=== PATIENT | female | born 1940 | race African-American/Black ===

== ENCOUNTER 2018-03-27 05:07 | Emergency (ER) | payer OTHER, BC ==
[2018-03-27 05:22] VITALS: TEMP 97.6; BMI 26.6
[2018-03-27] MEDS ORDERED: ALBUTEROL SO4 0.083% IH SOL 2.5 MG/3 ML VIAL.NEB. NEB ONE ×2 (05:48→06:18)
[2018-03-27] MEDS ORDERED: LORATADINE 10 MG TABLET PO ONE (06:13)
[2018-03-27] MEDS ORDERED: LORATADINE 10 MG TABLET ONE (06:29)
--- NOTE | 2018-03-27 06:57 | PDOC ---
History of Present Illness - General Chief Complaint: Cold Symptoms Stated Complaint: STOMACH CRAMP,COUGHING Time Seen by Provider: 03/27/18 05:18 History Source: Patient Exam Limitations: No Limitations - History of Present Illness Initial Comments: 77 y/o F hx of HTN, bronchitis, seasonal allergies presents with having dry cough with abdominal cramping, slight cramping in B/L hands and B/L legs from today. Patient mentions having chronic cough for some time, for which she uses Albuterol inhaler and nebulizer. She has not been formally diagnosed with anything. Since last month, the cough grew a bit worse; she saw someone a month ago who prescribed her allergy meds and then saw her PCP last week and was given Montelukast, but has not noticed much difference with it. States the cramping started today. Also mentions recently being started on new BP medication, Olmesartan/Hctz 40/12.5 mg one month ago; denies taking any other HTN meds. Also mentions having occasional wheezing at home and nasal congestion. Denies smoking, fever, chills, sob, cp, n/v/d, urinary complaints. 03/27/18 06:48 Past History - Past Medical History Allergies/Adverse Reactions: Allergies Allergy/AdvReac Type Severity Reaction Status Date / Time No Known Drug Allergies Allergy Verified 03/27/18 05:17 Home Medications: Ambulatory Orders Valsartan [Diovan] 40 mg PO DAILY #30 tablet 05/10/14 Famotidine [Pepcid] 20 mg PO HS 01/22/16 Anemia: No Asthma: No Cancer: No Cardiac Disorders: No CVA: No COPD: No CHF: No Dementia: No Diabetes: No GI Disorders: No Disorders: No HTN: Yes Hypercholesterolemia: No Liver Disease: No Seizures: No Thyroid Disease: No - Surgical History Abdominal Surgery: Yes (hernia) Appendectomy: No Cardiac Surgery: No Cholecystectomy: No Lung Surgery: No Neurologic Surgery: No Orthopedic Surgery: No - Immunization History Immunization Up to Date: Yes - Suicide/Smoking/Psychosocial Hx Smoking Status: No Smoking History: Never smoked Have you smoked in the past 12 months: No Number of Cigarettes Smoked Daily: 0 Cigars Per Day: 0 Information on smoking cessation initiated: No Hx Alcohol Use: No Drug/Substance Use Hx: No Review of Systems - Review of Systems Comments:: See HPI 03/27/18 06:57 *Physical Exam - Vital Signs Last Vital Signs Temp Pulse Resp BP Pulse Ox 97.6 F 96 H 20 155/69 98 03/27/18 05:18 03/27/18 05:18 03/27/18 05:18 03/27/18 05:18 03/27/18 05:18 - Physical Exam General Appearance: No: Apparent Distress HEENT: positive: Nasal Congestion. negative: Muffled/Hoarse voice, Pharyngeal Erythema, Tonsillar Erythema, Rhinorrhea, Sinus Tenderness Neck: positive: Supple Respiratory/Chest: positive: Lungs Clear, Normal Breath Sounds. negative: Respiratory Distress, Accessory Muscle Use, Labored Respiration Cardiovascular: positive: Regular Rhythm, Regular Rate, S1, S2 Gastrointestinal/Abdominal: positive: Normal Bowel Sounds. negative: Tender, Distended, Guarding, Rebound, Tenderness Musculoskeletal: negative: CVA Tenderness Extremity: positive: Normal Inspection. negative: Pedal Edema, Swelling, Calf Tenderness Neurologic: positive: Fully Oriented, Alert, Normal Mood/Affect Heart Score/ECG Review #1 EKG shows NSR at 87 bpm, no ectopy, small TWI lead III 03/27/18 06:58 ED Treatment Course - LABORATORY CBC & Chemistry Diagram: 03/27/18 06:51 03/27/18 06:51 - RADIOLOGY Radiology Studies Ordered: Category Date Time Status CHEST PA & LAT [RAD] Stat Radiology 03/27/18 05:51 Taken - Medications Given in the ED: ED Medications Discontinued Medications Generic Name Dose Route Start Last Admin Trade Name Freq PRN Reason Stop Dose Admin Albuterol Sulfate 1 amp 03/27/18 05:48 03/27/18 06:10 Ventolin 0.083% Nebulizer Soln - NEB 03/27/18 05:49 1 amp ONCE ONE Administration Loratadine 10 mg 03/27/18 06:13 03/27/18 06:28 Claritin - PO 03/27/18 06:14 10 mg ONCE ONE Administration Medical Decision Making - Medical Decision Making 77 y/o F hx of HTN presents with chronic cough along with cramping of abdomen, hands and legs. Mentions the cramping in her abdomen improved after drinking orange juice. Consider electrolyte abnormalities (such as hypokalemia, hypomagnesemia, hypocalcemia). Also consider ACS though less suspicious given no CP and nonischemic EKG. Consider CHF though does not appear fluid overloaded. Consider PNA though no fever and lungs clear. Plan: CBC, CMP, trop, BNP, Mg, VBG, CXR 03/27/18 06:[address] Sheffield and no acute findings noted Pending lab results Will sign out to AM ASHLEY 03/27/18 07:02 *DC/Admit/Observation/Transfer Diagnosis at time of Disposition: Abdominal cramping - Discharge Dispostion Disposition: HOME Condition at time of disposition: Improved - Referrals Referrals: Bonifacio Sen MD [Primary Care Provider] - - Patient Instructions Additional Instructions: The cause of your abdominal pain is unclear as your labs were normal Return for worsening of symptoms, otherwise follow up with your PMD - Post Discharge Activity
[2018-03-27 06:58] LABS: VENOUS PH 7.36 (7.32-7.42); VENOUS PO2 41.5 mmHg (28-48)
[2018-03-27 07:12] LABS: BASO % 0.6 % (0-2.0); EOS % 12.4 % (0-4.5); HEMATOCRIT 34.1 % (32.4-45.2); HEMOGLOBIN 11.5 GM/dL (10.7-15.3); MCHC 33.6 g/dl (32.0-36.0); MEAN CELL VOLUME 86.3 fl (80-96); MEAN PLT VOLUME 8.2 fl (7.5-11.1); MONO % 10.1 % (3.8-10.2); NEUT % 49.9 % (42.8-82.8); PLATELET COUNT 201 K/MM3 (134-434); RBC 3.95 M/mm3 (3.60-5.2); RDW 13.9 % (11.6-15.6); WHITE BLOOD COUNT 7.2 K/mm3 (4.0-10.0)
--- NOTE | 2018-03-27 07:14 | PDOC ---
*Physical Exam - Vital Signs Last Vital Signs Temp Pulse Resp BP Pulse Ox 97.6 F 96 H 20 155/69 98 03/27/18 05:18 03/27/18 05:18 03/27/18 05:18 03/27/18 05:18 03/27/18 05:18 - Physical Exam General Appearance: Yes: Appropriately Dressed. No: Apparent Distress HEENT: positive: Normal Voice Neck: positive: Supple Respiratory/Chest: positive: Lungs Clear, Normal Breath Sounds. negative: Respiratory Distress Cardiovascular: positive: Regular Rate, S1, S2 Gastrointestinal/Abdominal: positive: Normal Bowel Sounds, Soft. negative: Tender, Pulsatile Mass, Distended, Guarding Musculoskeletal: negative: CVA Tenderness Integumentary: positive: Dry, Warm Neurologic: positive: Fully Oriented, Alert, Normal Mood/Affect ED Treatment Course - LABORATORY CBC & Chemistry Diagram: 03/27/18 06:51 03/27/18 06:51 - Medications Given in the ED: ED Medications Discontinued Medications Generic Name Dose Route Start Last Admin Trade Name Freq PRN Reason Stop Dose Admin Albuterol Sulfate 1 amp 03/27/18 05:48 03/27/18 06:10 Ventolin 0.083% Nebulizer Soln - NEB 03/27/18 05:49 1 amp ONCE ONE Administration Loratadine 10 mg 03/27/18 06:13 03/27/18 06:28 Claritin - PO 03/27/18 06:14 10 mg ONCE ONE Administration Medical Decision Making - Medical Decision Making 03/27/18 07:12 Signed out to me at 7am 77 yo F, h/o HTN, chronic cough, p/w upper abd pain yesterday, that resolved after she drank some orange juice this a.m. Exam unremarkable per prior team. EKG and chest x-ray unremarkable. Pending labs. Per prior team can be discharged if labs are normal. On reassessment now, patient well-appearing and stable with benign abdomen and clear chest/lungs. Denies any chest pain or shortness of breath at this time. 03/27/18 07:50 Labs unremarkable. Pt stable for discharge *DC/Admit/Observation/Transfer Diagnosis at time of Disposition: Abdominal cramping - Discharge Dispostion Disposition: HOME Condition at time of disposition: Improved - Referrals Referrals: Bonifacio Sen MD [Primary Care Provider] - - Patient Instructions Additional Instructions: The cause of your abdominal pain is unclear as your labs were normal Return for worsening of symptoms, otherwise follow up with your PMD - Post Discharge Activity
[2018-03-27 07:43] VITALS: BP 145/76; PULSE 89
[2018-03-27 07:49] LABS: ALBUMIN 3.7 g/dl (3.4-5.0); ALK PHOS 89 U/L (45-117); ANION GAP 8 MMOL/L (8-16); BILIRUBIN,TOTAL 0.4 mg/dL (0.2-1); BLOOD UREA NITROGEN 12 mg/dL (7-18); CALCIUM 8.7 mg/dL (8.5-10.1); CHLORIDE 99 mmol/L (98-107); CO2 26 mmol/L (21-32); CREATININE 0.8 mg/dL (0.55-1.3); GLUCOSE,RANDOM 98 mg/dL (74-106); SGOT/AST 16 U/L (15-37); SGPT/ALT 28 U/L (13-61); SODIUM 133 mmol/L (136-145)
--- NOTE | 2018-03-27 12:31 | EKG ---
Test Reason : Blood Pressure : / mmHG Vent. Rate : 087 BPM Atrial Rate : 087 BPM P-R Int : 156 ms QRS Dur : 082 ms QT Int : 376 ms P-R-T Axes : 053 034 038 degrees QTc Int : 452 ms NORMAL SINUS RHYTHM NORMAL ECG WHEN COMPARED WITH ECG OF 10-MAY-2014 05:58, QT HAS SHORTENED Confirmed by Wong Jaramillo ([id number]) on 03/27/2018 12:31:25 PM Referred By: Confirmed By:Wong Jaramillo
== END 2018-03-27 07:54 | disposition home or self-care (01) ==
LOC: JER 05:07
PROC: 3E0F7GC Introduction of Other Therapeutic Substance into Respiratory Tract, Via Natural or Artificial Opening (ICD-10-PCS; principal; 2018-03-27)
DX: R10.9 Unspecified abdominal pain (principal); R05 Cough; I10 Essential (primary) hypertension
CPT/HCPCS: 36415; 71046-TC-FY; 80053; 82803; 83735; 83880; 84484; 85025; 93005; 93010; 94640; 99282-25

== ENCOUNTER 2018-11-26 03:50 | Emergency (ER) | payer OTHER, BC ==
--- NOTE | 2018-11-26 04:12 | PDOC ---
History of Present Illness - General Stated Complaint: ABD CRAMPS Time Seen by Provider: 11/26/18 04:08 Past History - Past Medical History Allergies/Adverse Reactions: Allergies Allergy/AdvReac Type Severity Reaction Status Date / Time No Known Drug Allergies Allergy Verified 11/26/18 07:45 Home Medications: Ambulatory Orders Albuterol 0.083% Nebulizer Katerina [Ventolin 0.083% Nebulizer Soln -] 1 neb NEB Q6H PRN 11/26/18 Albuterol Sulfate Inhaler - [Ventolin Hfa Inhaler -] 1 - 2 inh PO Q4H PRN Cefuroxime Axetil [Cefuroxime] 500 mg PO BID 11/26/18 Anemia: No Asthma: No Cancer: No Cardiac Disorders: No CVA: No COPD: No CHF: No Dementia: No Diabetes: No GI Disorders: No Disorders: No HTN: Yes Hypercholesterolemia: No Liver Disease: No Seizures: No Thyroid Disease: No - Surgical History Abdominal Surgery: Yes (hernia) Appendectomy: No Cardiac Surgery: No Cholecystectomy: No Lung Surgery: No Neurologic Surgery: No Orthopedic Surgery: No - Immunization History Immunization Up to Date: Yes - Suicide/Smoking/Psychosocial Hx Smoking Status: No Smoking History: Never smoked Have you smoked in the past 12 months: No Number of Cigarettes Smoked Daily: 0 Cigars Per Day: 0 Hx Alcohol Use: No Drug/Substance Use Hx: No Substance Use Type: None ED Treatment Course - LABORATORY CBC & Chemistry Diagram: 11/26/18 05:11 11/26/18 07:01 Medical Decision Making - Medical Decision Making 78yo F with PMH of HTN, chronic bronchitis presenting with muscle cramps. Patient states she started a new medicine (Cefuroxime 500mg BID x 7 days, bottle has seven tablets remaining) on Wednesday prescribed by her primary care provider for her chronic bronchitis. She started having bilateral leg cramps at around 10pm and at 2pm had both leg and abdominal cramps. Patient's daughter gave her cyclobenzaprine which the patient believes helped with her cramping. She is not currently cramping at this time. Patient states that she has taken antibiotics in the past that have caused her the same type of muscle cramps. She believes the 500mg dosage is too much for her. She believes she has not been keeping well-hydrated and also spent most of the day in a hot kitchen frying fish. No fevers, chills, chest pain, or shortness of breath. PCP: Dr. Sen Pulmonary: Dr. Puri ROS: Constitutional: no fever, no chills HEENT: no throat pain, no dysphagia Cardiovascular: no chest pain, no palpitations Respiratory: no cough, no shortness of breath Gastrointestinal: no abdominal pain, no nausea Genitourinary: no dysuria, no frequency Musculoskeletal: +muscle cramps, no back pain Skin: no rash, no itching Neurologic: no headache, no weakness PE: General: Awake, alert, and fully oriented, in no acute distress Head: No signs of trauma Eyes: EOMI, sclera anicteric ENT: Moist mucus membranes Neck: Normal ROM, supple Lungs: Lungs clear, Prolonged expiratory phase Cardio: Regular rhythm, S1 and S2 present Abdomen: Soft, nontender. No guarding, no rebound, no masses Extremities: Normal range of motion, Distal pulses present SKIN: Warm, Dry, normal turgor Neurologic: Cranial nerves II through XII grossly intact. Normal speech Plan DDX including but not limited to electrolyte abnormality, anemia, adverse drug reaction, dehydration Labs Banana bag 11/26/18 04:12 CBC WBC 7.6 K/mm3 (4.0-10.0) 11/26/18 05:11 RBC 3.97 M/mm3 (3.60-5.2) 11/26/18 05:11 Hgb 11.9 GM/dL (10.7-15.3) 11/26/18 05:11 Hct 34.3 % (32.4-45.2) 11/26/18 05:11 MCV 86.2 fl (80-96) 11/26/18 05:11 MCH 30.1 pg (25.7-33.7) 11/26/18 05:11 MCHC 34.9 g/dl (32.0-36.0) 11/26/18 05:11 RDW 14.0 % (11.6-15.6) 11/26/18 05:11 Plt Count 243 K/MM3 (134-434) D 11/26/18 05:11 MPV 8.3 fl (7.5-11.1) 11/26/18 05:11 Absolute Neuts (auto) 2.9 K/mm3 (1.5-8.0) 11/26/18 05:11 Neutrophils % 37.9 % (42.8-82.8) L D 11/26/18 05:11 Lymphocytes % 41.1 % (8-40) H D 11/26/18 05:11 Monocytes % 10.2 % (3.8-10.2) 11/26/18 05:11 Eosinophils % 9.1 % (0-4.5) H 11/26/18 05:11 Basophils % 1.7 % (0-2.0) 11/26/18 05:11 Nucleated RBC % 0 % (0-0) 11/26/18 05:11 No anemia or leukocytosis Chemistries hemolyzed Re-ordered and sent 11/26/18 05:08 Patient signed out to day team 11/26/18 07:07 *DC/Admit/Observation/Transfer Diagnosis at time of Disposition: Muscle cramping - Discharge Dispostion Disposition: HOME Condition at time of disposition: Improved - Referrals Referrals: Bonifacio Sen MD [Primary Care Provider] - - Patient Instructions Printed Discharge Instructions: Nocturnal Leg Cramps Additional Instructions: You came into the emergency department with muscle cramping. Your blood work did not show any acute abnormalities. We gave you IV fluids containing vitamins and minerals. Eat and hydrate throughout the day to prevent dehydration and low blood sugar levels. Follow-up with your primary care provider within 72 hours to discuss this ED visit and to further evaluate your symptoms. Call and make an appointment tomorrow morning. Your workup is not complete until you do so. Immediate medical attention is required if: have any chest pain, palpitations, shortness of breath, severe headaches, changes in vision, focal numbness or weakness, any severe abdominal pain, any black tarry stool, or any new or concerning symptoms. If you think you are having an emergency, call for emergency medical services or present to the emergency department right away. - Post Discharge Activity
--- NOTE | 2018-11-26 04:21 | PDOC ---
Attending Attestation - Resident Resident Name: Grisel Finney (]) - ED Attending Attestation I have performed the following: I have examined & evaluated the patient, The case was reviewed & discussed with the resident, I agree w/resident's findings & plan - HPI HPI: 11/26/18 05:04 Pt comes with muscle cramps. She has not been eating and drinking well and working all day in a hot kitchen. Pt liekly has an electrolyte imbalance. - Physicial Exam PE: 11/26/18 05:05 Agree with resident exam. - Medical Decision Making 11/26/18 05:40 Pt has normal CBC. chem pending. 11/26/18 05:40 Pt will get a banana bag. She will be sent home afterward.
[2018-11-26 04:29] VITALS: BMI 25.9
[2018-11-26] MEDS ORDERED: SODIUM CHLORIDE 1,000 ML IV STA (04:55)
[2018-11-26] MEDS ORDERED: FOLIC ACID INJECTION - 1 MG, THIAMINE HCL 100 MG, MULTIVIT INJECTION ADULT 10 ML in SOD... IVPB ONE (04:57)
[2018-11-26 05:28] LABS: BASO % 1.7 % (0-2.0); EOS % 9.1 % (0-4.5); HEMATOCRIT 34.3 % (32.4-45.2); HEMOGLOBIN 11.9 GM/dL (10.7-15.3); LYMPH % 41.1 % (8-40); MCH 30.1 pg (25.7-33.7); MCHC 34.9 g/dl (32.0-36.0); MEAN CELL VOLUME 86.2 fl (80-96); MEAN PLT VOLUME 8.3 fl (7.5-11.1); MONO % 10.2 % (3.8-10.2); NEUT % 37.9 % (42.8-82.8); PLATELET COUNT 243 K/MM3 (134-434); RBC 3.97 M/mm3 (3.60-5.2); WHITE BLOOD COUNT 7.6 K/mm3 (4.0-10.0)
[2018-11-26 08:15] LABS: BILIRUBIN,TOTAL 0.3 mg/dL (0.2-1); BLOOD UREA NITROGEN 14.9 mg/dL (7-18); CALCIUM 8.6 mg/dL (8.5-10.1); CREATININE 0.8 mg/dL (0.55-1.3); MAGNESIUM 2.1 mg/dL (1.8-2.4); POTASSIUM 3.5 mmol/L (3.5-5.1); TOT PROT 7.1 g/dl (6.4-8.2)
--- NOTE | 2018-11-26 08:55 | PDOC ---
*Physical Exam - Vital Signs Last Vital Signs Temp Pulse Resp BP Pulse Ox 80 16 146/59 L 98 11/26/18 04:20 11/26/18 04:20 11/26/18 04:20 11/26/18 04:20 - Physical Exam General Appearance: Yes: Nourished HEENT: positive: EOMI <Naresh Blackmon - Last Filed: 11/26/18 08:55> - Vital Signs Last Vital Signs Temp Pulse Resp BP Pulse Ox 80 16 146/59 L 98 11/26/18 04:20 11/26/18 04:20 11/26/18 04:20 11/26/18 04:20 <Shruthi Meza - Last Filed: 11/26/18 09:03> ED Treatment Course - LABORATORY CBC & Chemistry Diagram: 11/26/18 05:11 11/26/18 07:01 - ADDITIONAL ORDERS Additional order review: Laboratory Results 11/26/18 11/26/18 11/26/18 07:01 07:01 05:11 Sodium 140 Potassium 3.5 Chloride 106 Carbon Dioxide 27 Anion Gap 7 L BUN 14.9 Creatinine 0.8 Est GFR (CKD-EPI)AfAm 82.42 Est GFR (CKD-EPI)NonAf 71.11 Random Glucose 86 Calcium 8.6 Magnesium 2.1 Total Bilirubin 0.3 AST 15 ALT 30 Alkaline Phosphatase 86 Creatine Kinase 577 H Cancelled Creatine Kinase Index 1.4 CK-MB (CK-2) 8.2 H Total Protein 7.1 Albumin 4.0 11/26/18 05:11 Sodium Cancelled Potassium Cancelled Chloride Cancelled Carbon Dioxide Cancelled Anion Gap Cancelled BUN Cancelled Creatinine Cancelled Est GFR (CKD-EPI)AfAm Cancelled Est GFR (CKD-EPI)NonAf Cancelled Random Glucose Cancelled Calcium Cancelled Magnesium Total Bilirubin Cancelled AST Cancelled ALT Cancelled Alkaline Phosphatase Cancelled Creatine Kinase Cancelled Creatine Kinase Index CK-MB (CK-2) Total Protein Cancelled Albumin Cancelled 11/26/18 05:11 RBC 3.97 MCV 86.2 MCHC 34.9 RDW 14.0 MPV 8.3 Neutrophils % 37.9 L D Lymphocytes % 41.1 H D Monocytes % 10.2 Eosinophils % 9.1 H Basophils % 1.7 - Medications Given in the ED: ED Medications Discontinued Medications Generic Name Dose Route Start Last Admin Trade Name Freq PRN Reason Stop Dose Admin Sodium Chloride 1,000 mls @ 1,000 mls/hr 11/26/18 04:55 11/26/18 05:57 Normal Saline - IV 11/26/18 05:54 Not Given ASDIR STA <Naresh Blackmon - Last Filed: 11/26/18 08:55> - LABORATORY CBC & Chemistry Diagram: 11/26/18 05:11 11/26/18 07:01 - ADDITIONAL ORDERS Additional order review: Laboratory Results 11/26/18 11/26/18 11/26/18 07:01 07:01 05:11 Sodium 140 Potassium 3.5 Chloride 106 Carbon Dioxide 27 Anion Gap 7 L BUN 14.9 Creatinine 0.8 Est GFR (CKD-EPI)AfAm 82.42 Est GFR (CKD-EPI)NonAf 71.11 Random Glucose 86 Calcium 8.6 Magnesium 2.1 Total Bilirubin 0.3 AST 15 ALT 30 Alkaline Phosphatase 86 Creatine Kinase 577 H Cancelled Creatine Kinase Index 1.4 CK-MB (CK-2) 8.2 H Total Protein 7.1 Albumin 4.0 11/26/18 05:11 Sodium Cancelled Potassium Cancelled Chloride Cancelled Carbon Dioxide Cancelled Anion Gap Cancelled BUN Cancelled Creatinine Cancelled Est GFR (CKD-EPI)AfAm Cancelled Est GFR (CKD-EPI)NonAf Cancelled Random Glucose Cancelled Calcium Cancelled Magnesium Total Bilirubin Cancelled AST Cancelled ALT Cancelled Alkaline Phosphatase Cancelled Creatine Kinase Cancelled Creatine Kinase Index CK-MB (CK-2) Total Protein Cancelled Albumin Cancelled 11/26/18 05:11 RBC 3.97 MCV 86.2 MCHC 34.9 RDW 14.0 MPV 8.3 Neutrophils % 37.9 L D Lymphocytes % 41.1 H D Monocytes % 10.2 Eosinophils % 9.1 H Basophils % 1.7 - Medications Given in the ED: ED Medications Discontinued Medications Generic Name Dose Route Start Last Admin Trade Name Freq PRN Reason Stop Dose Admin Sodium Chloride 1,000 mls @ 1,000 mls/hr 11/26/18 04:55 11/26/18 05:57 Normal Saline - IV 11/26/18 05:54 Not Given ASDIR STA <Shruthi Meza - Last Filed: 11/26/18 09:03> Medical Decision Making - Medical Decision Making 11/26/18 09:[address] Sheffield pending labs and reeval labs wnl. feels improved after IVF hydration, adequate intake and nutrition, and supportive care DC stable condition, return precautions, PCP followp 11/26/18 09:03 <SusanaShruthi Márquez - Last Filed: 11/26/18 09:03> *DC/Admit/Observation/Transfer <Naresh Blackmon - Last Filed: 11/26/18 08:55> <Shruthi Meza - Last Filed: 11/26/18 09:03> Diagnosis at time of Disposition: Muscle cramping - Referrals Referrals: Bonifacio Sen MD [Primary Care Provider] - - Patient Instructions Printed Discharge Instructions: Nocturnal Leg Cramps Additional Instructions: You came into the emergency department with muscle cramping. Your blood work did not show any acute abnormalities. We gave you IV fluids containing vitamins and minerals. Eat and hydrate throughout the day to prevent dehydration and low blood sugar levels. Follow-up with your primary care provider within 72 hours to discuss this ED visit and to further evaluate your symptoms. Call and make an appointment tomorrow morning. Your workup is not complete until you do so. Immediate medical attention is required if: have any chest pain, palpitations, shortness of breath, severe headaches, changes in vision, focal numbness or weakness, any severe abdominal pain, any black tarry stool, or any new or concerning symptoms. If you think you are having an emergency, call for emergency medical services or present to the emergency department right away. - Post Discharge Activity
[2018-11-26 09:19] VITALS: BP 140/82; PULSE 82
== END 2018-11-26 09:18 | disposition home or self-care (01) ==
LOC: JER 03:50
PROC: 3E033GC Introduction of Other Therapeutic Substance into Peripheral Vein, Percutaneous Approach (ICD-10-PCS; principal; 2018-11-26)
DX: R25.2 Cramp and spasm (principal); I10 Essential (primary) hypertension; J40 Bronchitis, not specified as acute or chronic
CPT/HCPCS: 36415; 80053; 82550; 82553; 83735; 85025; 96365; 99283-25; J7030

== ENCOUNTER 2019-04-06 02:25 | Emergency (ER) | payer OTHER, BC ==
[2019-04-06 03:53] VITALS: BP 123/81; PULSE 81; TEMP 97.8; BMI 26.2
== END 2019-04-06 07:25 | disposition left against medical advice (07) ==
LOC: JER 02:25
DX: Z53.21 Procedure and treatment not carried out due to patient leaving prior to being seen by health care provider (principal)
CPT/HCPCS: 99281-25

== ENCOUNTER 2020-05-17 21:09 | Emergency (ER) | payer OTHER, BC ==
[2020-05-17 21:21] VITALS: BP 138/61; PULSE 65; TEMP 97; BMI 25.6
[2020-05-17] MEDS ORDERED: SODIUM CHLORIDE 0.9% 500 ML INFUS.BAG IV ONE (22:26)
[2020-05-17 22:52] LABS: BASO % 0.7 % (0-2.0); EOS % 1.5 % (0-4.5); HEMATOCRIT 37.7 % (32.4-45.2); HEMOGLOBIN 13.2 GM/dL (10.7-15.3); LYMPH % 29.4 % (8-40); MCH 30.3 pg (25.7-33.7); MCHC 35.1 g/dl (32.0-36.0); MEAN CELL VOLUME 86.2 fl (80-96); MONO % 5.7 % (3.8-10.2); NEUT % 62.7 % (42.8-82.8); PLATELET COUNT 266 K/MM3 (134-434); RBC 4.37 M/mm3 (3.60-5.2); RDW 13.9 % (11.6-15.6); WHITE BLOOD COUNT 9.8 K/mm3 (4.0-10.0)
[2020-05-17 23:07] LABS: INR 1.04 (0.83-1.09); PROTHROMBIN TIME (PATIENT) 12.8 SEC (9.7-13.0)
[2020-05-17 23:13] LABS: CHLORIDE 105 mmol/L (98-107); SODIUM 139 mmol/L (136-145)
[2020-05-17 23:15] LABS: ALBUMIN 4.1 g/dl (3.4-5.0); ANION GAP 9 MMOL/L (8-16); BLOOD UREA NITROGEN 16.6 mg/dL (7-18); CALCIUM 9.2 mg/dL (8.5-10.1); CO2 25 mmol/L (21-32)
[2020-05-17 23:16] LABS: GLUCOSE,RANDOM 88 mg/dL (74-106)
[2020-05-17 23:18] LABS: CREATININE 1.1 mg/dL (0.55-1.3); PHOSPHOROUS 4.3 mg/dL (2.5-4.9); SGOT/AST 15 U/L (15-37); SGPT/ALT 28 U/L (13-61)
[2020-05-17 23:20] LABS: BILIRUBIN,TOTAL 0.6 mg/dL (0.2-1); TOT PROT 7.9 g/dl (6.4-8.2)
[2020-05-17 23:21] LABS: ALK PHOS 81 U/L (45-117)
[2020-05-18 01:30] LABS: EPI CELLS 11 /uL (0-25.1); HYALINE CASTS 5 /uL (0-3.1); PH,URINE 6.5 (5.0-8.0); URINE APPEARANCE CLEAR; URINE BACTERIA 26 /uL (0-1359); URINE BILIRUBIN NEGATIVE (NEGATIVE); URINE COLOR YELLOW; URINE GLUCOSE (UA) NEGATIVE (NEGATIVE); URINE KETONE NEGATIVE (NEGATIVE); URINE LEUK ESTERASE 1+ (NEGATIVE); URINE NITRITE NEGATIVE (NEGATIVE); URINE PROTEIN NEGATIVE (NEGATIVE); URINE RBC 16 /uL (0-23.9); URINE UROBILINOGEN 0.2 mg/dL (0.2-1.0); URINE WBC 25 /uL (0-25.8)
[2020-05-18] MEDS ORDERED: NITROFURANTOIN MACROCRYSTAL 50 MG CAPSULE (FP) PO ONE (02:30)
[2020-05-18] MEDS ORDERED: NITROFURANTOIN MACROCRYSTAL 50 MG CAPSULE (FP) ONE (02:44)
== END 2020-05-18 03:19 | disposition home or self-care (01) ==
LOC: JER 21:09
DX: R55 Syncope and collapse (principal); R61 Generalized hyperhidrosis
CPT/HCPCS: 36415; 71046-TC-FY; 80053; 81003; 82550; 82553; 82962; 83735; 84100; 84443; 84484; 85025; 85610; 87086; 87426; 93005; 93010; 99285-25

== ENCOUNTER 2020-07-04 17:32 | Emergency (ER) | payer OTHER, BC ==
[2020-07-04 17:52] VITALS: BMI 29.1
[2020-07-04 20:40] LABS: BASO % 1.2 % (0-2.0); EOS % 0.1 % (0-4.5); HEMATOCRIT 36.7 % (32.4-45.2); HEMOGLOBIN 12.8 GM/dL (10.7-15.3); LYMPH % 31.3 % (8-40); MCH 30.1 pg (25.7-33.7); MCHC 34.9 g/dl (32.0-36.0); MEAN CELL VOLUME 86.4 fl (80-96); MONO % 7.3 % (3.8-10.2); NEUT % 60.1 % (42.8-82.8); PLATELET COUNT 264 K/MM3 (134-434); RBC 4.25 M/mm3 (3.60-5.2); WHITE BLOOD COUNT 10.4 K/mm3 (4.0-10.0)
[2020-07-04 20:49] LABS: INR 0.97 (0.83-1.09); PROTHROMBIN TIME (PATIENT) 11.7 SEC (9.7-13.0)
[2020-07-04 20:52] LABS: ACTIVATED PTT 26.8 SECONDS (25.2-36.5)
[2020-07-04 21:00] LABS: CHLORIDE 97 mmol/L (98-107); POTASSIUM 4.1 mmol/L (3.5-5.1); SODIUM 132 mmol/L (136-145)
[2020-07-04 21:02] LABS: CALCIUM 9.5 mg/dL (8.5-10.1)
[2020-07-04 21:03] LABS: ANION GAP 5 MMOL/L (8-16); BLOOD UREA NITROGEN 10.8 mg/dL (7-18); CO2 30 mmol/L (21-32); GLUCOSE,RANDOM 90 mg/dL (74-106)
[2020-07-04 21:06] LABS: CREATININE 0.9 mg/dL (0.55-1.3); SGOT/AST 7 U/L (15-37); SGPT/ALT 23 U/L (13-61)
[2020-07-04 21:07] LABS: TOT PROT 7.7 g/dl (6.4-8.2)
[2020-07-04 21:09] LABS: ALK PHOS 81 U/L (45-117); BILIRUBIN,TOTAL 0.8 mg/dL (0.2-1)
[2020-07-04 23:00] LABS: URINE APPEARANCE CLEAR; URINE BILIRUBIN NEGATIVE (NEGATIVE); URINE COLOR YELLOW; URINE GLUCOSE (UA) NEGATIVE (NEGATIVE); URINE KETONE NEGATIVE (NEGATIVE); URINE LEUK ESTERASE NEGATIVE (NEGATIVE); URINE NITRITE NEGATIVE (NEGATIVE); URINE PROTEIN NEGATIVE (NEGATIVE); URINE UROBILINOGEN 0.2 mg/dL (0.2-1.0)
[2020-07-04] MEDS ORDERED: SODIUM CHLORIDE 1,000 ML IV STA (23:34)
[2020-07-04] MEDS ORDERED: MECLIZINE HCL 12.5 MG TABLET PO ONE (23:50)
[2020-07-05] MEDS ORDERED: MECLIZINE HCL 12.5 MG TABLET ONE
[2020-07-05 00:54] VITALS: TEMP 98.3
[2020-07-05 02:08] VITALS: BP 126/74; PULSE 77
== END 2020-07-05 02:08 | disposition home or self-care (01) ==
LOC: JER 17:32
PROC: 3E0337Z Introduction of Electrolytic and Water Balance Substance into Peripheral Vein, Percutaneous Approach (ICD-10-PCS; principal; 2020-07-04)
DX: R53.82 Chronic fatigue, unspecified (principal)
CPT/HCPCS: 36415; 71045-TC-FY; 80053; 81003; 84484; 85025; 85610; 85730; 87086; 93005; 93010; 99285-25

== ENCOUNTER 2021-08-02 13:16 | Emergency (ER) | payer OTHER, BC ==
[2021-08-02 13:27] VITALS: TEMP 99; BMI 25.0
[2021-08-02 15:07] LABS: PH,URINE 7.5 (5.0-8.0); URINE APPEARANCE CLEAR; URINE BILIRUBIN NEGATIVE (NEGATIVE); URINE COLOR YELLOW; URINE GLUCOSE (UA) NEGATIVE (NEGATIVE); URINE KETONE NEGATIVE (NEGATIVE); URINE LEUK ESTERASE NEGATIVE (NEGATIVE); URINE NITRITE NEGATIVE (NEGATIVE); URINE PROTEIN NEGATIVE (NEGATIVE)
[2021-08-02 15:18] LABS: BASO % 1.2 % (0-2.0); EOS % 0.1 % (0-4.5); HEMATOCRIT 35.6 % (32.4-45.2); HEMOGLOBIN 12.2 GM/dL (10.7-15.3); LYMPH % 25.5 % (8-40); MCHC 34.3 g/dl (32.0-36.0); MEAN CELL VOLUME 84.7 fl (80-96); MONO % 10.7 % (3.8-10.2); NEUT % 62.5 % (42.8-82.8); PLATELET COUNT 214 10^3/uL (134-434); RBC 4.21 M/mm3 (3.60-5.2); RDW 14.2 % (11.6-15.6); WHITE BLOOD COUNT 4.9 K/mm3 (4.0-10.0)
[2021-08-02 15:40] LABS: ALBUMIN 3.7 g/dl (3.4-5.0); BLOOD UREA NITROGEN 8.1 mg/dL (7-18)
[2021-08-02 15:43] LABS: CREATININE 0.9 mg/dL (0.55-1.3)
[2021-08-02 15:44] LABS: BILIRUBIN,TOTAL 0.4 mg/dL (0.2-1)
[2021-08-02 15:45] LABS: TOT PROT 7.1 g/dl (6.4-8.2)
[2021-08-02 16:24] VITALS: BP 135/71; PULSE 69
== END 2021-08-02 16:25 | disposition home or self-care (01) ==
LOC: JER 13:16
DX: R68.2 Dry mouth, unspecified (principal)
CPT/HCPCS: 36415; 80053; 81003; 82962; 85025; 87086; 93005; 93010; 99284-25

== ENCOUNTER 2023-08-28 17:01 | Emergency (ER) | payer OTHER, BC ==
[2023-08-28 17:09] VITALS: TEMP 98; BMI 25.8
[2023-08-28 19:08] LABS: POTASSIUM 4.3 mmol/L (3.5-5.1)
[2023-08-28 19:10] LABS: ALBUMIN 3.5 g/dl (3.4-5.0); BLOOD UREA NITROGEN 15.1 mg/dL (7-18)
[2023-08-28 19:12] LABS: CREATININE 0.8 mg/dL (0.55-1.3)
[2023-08-28 19:14] LABS: BILIRUBIN,TOTAL 0.3 mg/dL (0.2-1); TOT PROT 7.4 g/dl (6.4-8.2)
[2023-08-28 19:37] VITALS: BP 150/59; PULSE 63; RESP 16
[2023-08-28] MEDS: SODIUM CHLORIDE 0.9% 500 ML INFUS.BAG IV ONE (20:22)
[2023-08-28 20:23] LABS: MAGNESIUM 2.1 mg/dL (1.8-2.4)
== END 2023-08-28 20:46 | disposition home or self-care (01) ==
LOC: JER 17:01
DX: R25.2 Cramp and spasm (principal); R42 Dizziness and giddiness
CPT/HCPCS: 36415; 80053; 83735; 99283-25

== ENCOUNTER 2023-09-04 23:00 | Inpatient (IN) | payer OTHER, BC ==
[2023-09-04 23:52] LABS: BASO % 0.9 % (0-2.0); EOS % 0.5 % (0-4.5); HEMATOCRIT 33.3 % (32.4-45.2); HEMOGLOBIN 11.4 GM/dL (10.7-15.3); LYMPH % 30.3 % (8-40); MCHC 34.2 g/dl (32.0-36.0); MEAN CELL VOLUME 81.8 fl (80-96); MEAN PLT VOLUME 7.3 fl (7.5-11.1); MONO % 8.4 % (3.8-10.2); NEUT % 59.9 % (42.8-82.8); PLATELET COUNT 268 10^3/uL (134-434); RBC 4.07 M/mm3 (3.60-5.2); RDW 15.6 % (11.6-15.6); WHITE BLOOD COUNT 8.4 K/mm3 (4.0-10.0)
[2023-09-05 00:11] LABS: POTASSIUM 5.6 mmol/L (3.5-5.1)
[2023-09-05 00:13] LABS: BLOOD UREA NITROGEN 9.9 mg/dL (7-18); CALCIUM 8.8 mg/dL (8.5-10.1); MAGNESIUM 1.9 mg/dL (1.8-2.4)
[2023-09-05 00:16] LABS: CREATININE 0.8 mg/dL (0.55-1.3)
[2023-09-05 00:18] LABS: BILIRUBIN,TOTAL 0.6 mg/dL (0.2-1); TOT PROT 7.1 g/dl (6.4-8.2)
[2023-09-05] MEDS: SODIUM CHLORIDE 0.9% 500 ML INFUS.BAG IV ONE (00:36)
[2023-09-05 01:01] LABS: INR 1.04 (0.83-1.09); PROTHROMBIN TIME (PATIENT) 11.7 SEC (9.7-13.0)
[2023-09-05 01:04] LABS: ACTIVATED PTT 29.6 SECONDS (25.2-36.5)
[2023-09-05 01:29] LABS: POTASSIUM 3.9 mmol/L (3.5-5.1)
[2023-09-05 01:30] LABS: CALCIUM 8.8 mg/dL (8.5-10.1)
[2023-09-05 01:31] LABS: BLOOD UREA NITROGEN 9.6 mg/dL (7-18)
[2023-09-05] MEDS: MAGNESIUM SULFATE IN WATER 2 GM/50 ML IVPB IVPB ONE (01:31)
[2023-09-05 01:34] LABS: CREATININE 0.7 mg/dL (0.55-1.3)
[2023-09-05 02:23] LABS: EPI CELLS 2 /uL (0-25.1); HYALINE CASTS 0 /uL (0-3.1); URINE APPEARANCE CLEAR; URINE BACTERIA 9 /uL (0-1359); URINE BILIRUBIN NEGATIVE (NEGATIVE); URINE COLOR YELLOW; URINE GLUCOSE (UA) NEGATIVE (NEGATIVE); URINE KETONE NEGATIVE (NEGATIVE); URINE LEUK ESTERASE TRACE (NEGATIVE); URINE NITRITE NEGATIVE (NEGATIVE); URINE PROTEIN NEGATIVE (NEGATIVE); URINE RBC 16 /uL (0-23.9); URINE UROBILINOGEN 0.2 mg/dL (0.2-1.0); URINE WBC 6 /uL (0-25.8)
[2023-09-05] MEDS ORDERED: DOCUSATE SODIUM 100 MG CAPSULE (FP) PO PRN (03:57)
[2023-09-05 04:17] VITALS: BMI 26.9
[2023-09-05 07:16] LABS: POTASSIUM 4.5 mmol/L (3.5-5.1)
[2023-09-05 07:23] LABS: CALCIUM 8.9 mg/dL (8.5-10.1)
[2023-09-05 07:24] LABS: BLOOD UREA NITROGEN 8.2 mg/dL (7-18)
[2023-09-05 07:27] LABS: CREATININE 0.6 mg/dL (0.55-1.3)
[2023-09-05 07:34] LABS: EOS % 0.1 % (0-4.5); HEMATOCRIT 31.7 % (32.4-45.2); LYMPH % 28.7 % (8-40); MCHC 34.6 g/dl (32.0-36.0); MEAN PLT VOLUME 8.2 fl (7.5-11.1); MONO % 7.7 % (3.8-10.2); NEUT % 62.5 % (42.8-82.8); PLATELET COUNT 279 10^3/uL (134-434); RBC 3.91 M/mm3 (3.60-5.2); RDW 15.5 % (11.6-15.6); WHITE BLOOD COUNT 8.7 K/mm3 (4.0-10.0)
[2023-09-05] MEDS: HEPARIN NA (PORCINE) 5,000 UNITS/ML 1ML VIAL SQ SCH (09:43)
[2023-09-05 20:31] VITALS: RESP 18
[2023-09-05] MEDS: ACETAMINOPHEN 325 MG TABLET (FP) PO PRN (23:30)
[2023-09-06 06:56] LABS: BASO % 1.2 % (0-2.0); EOS % 0.8 % (0-4.5); HEMATOCRIT 29.9 % (32.4-45.2); HEMOGLOBIN 10.4 GM/dL (10.7-15.3); LYMPH % 50.8 % (8-40); MCH 27.9 pg (25.7-33.7); MCHC 34.7 g/dl (32.0-36.0); MEAN CELL VOLUME 80.4 fl (80-96); MEAN PLT VOLUME 7.5 fl (7.5-11.1); MONO % 7.9 % (3.8-10.2); NEUT % 39.3 % (42.8-82.8); PLATELET COUNT 271 10^3/uL (134-434); RBC 3.72 M/mm3 (3.60-5.2); RDW 15.1 % (11.6-15.6); WHITE BLOOD COUNT 8.1 K/mm3 (4.0-10.0)
[2023-09-06 07:12] LABS: POTASSIUM 4.4 mmol/L (3.5-5.1)
[2023-09-06 07:16] LABS: ALBUMIN 2.7 g/dl (3.4-5.0); CALCIUM 8.8 mg/dL (8.5-10.1)
[2023-09-06 07:19] LABS: CREATININE 0.7 mg/dL (0.55-1.3)
[2023-09-06 07:21] LABS: BILIRUBIN,TOTAL 0.5 mg/dL (0.2-1)
[2023-09-06] MEDS: NEBIVOLOL 5 MG TABLET (FP) PO SCH (09:25)
[2023-09-06] MEDS: PANTOPRAZOLE 40 MG TABLET PO SCH (09:25)
[2023-09-06] MEDS ORDERED: PATIENT'S OWN MEDICATION (NON-FORMULARY) (Olmesartan Medoxomil 40 MG Tablet) PO SCH (10:00)
[2023-09-06] MEDS ORDERED: amLODIPine BESYLATE 10 MG TABLET (FP) PO SCH (10:00)
[2023-09-06] MEDS ORDERED: NEBIVOLOL 5 MG TABLET (FP) PO SCH ×2 (10:00)
[2023-09-06] MEDS: HYDROCORTISONE 1% TOPICAL LOTION 118 ML BOTTLE TP SCH (21:21)
[2023-09-06] MEDS: ROSUVASTATIN CA 10 MG TABLET PO SCH (21:22)
[2023-09-07 07:27] LABS: BASO % 2.9 % (0-2.0); EOS % 1.4 % (0-4.5); HEMATOCRIT 31.2 % (32.4-45.2); HEMOGLOBIN 10.6 GM/dL (10.7-15.3); LYMPH % 50.5 % (8-40); MCH 27.6 pg (25.7-33.7); MCHC 34.1 g/dl (32.0-36.0); MEAN CELL VOLUME 80.8 fl (80-96); MEAN PLT VOLUME 7.9 fl (7.5-11.1); MONO % 8.8 % (3.8-10.2); NEUT % 36.4 % (42.8-82.8); PLATELET COUNT 279 10^3/uL (134-434); RBC 3.86 M/mm3 (3.60-5.2); RDW 15.3 % (11.6-15.6); WHITE BLOOD COUNT 8.4 K/mm3 (4.0-10.0)
[2023-09-07 07:36] LABS: POTASSIUM 4.4 mmol/L (3.5-5.1)
[2023-09-07 07:51] LABS: ALBUMIN 2.8 g/dl (3.4-5.0)
[2023-09-07 07:52] LABS: BLOOD UREA NITROGEN 14.8 mg/dL (7-18)
[2023-09-07 07:54] LABS: CREATININE 0.8 mg/dL (0.55-1.3)
[2023-09-07 07:56] LABS: BILIRUBIN,TOTAL 0.5 mg/dL (0.2-1); TOT PROT 6.3 g/dl (6.4-8.2)
[2023-09-07] MEDS: IRON SUCROSE INJECTION 200 MG in SODIUM CHLORIDE 100 ML IVPB ONE (09:10)
[2023-09-07 15:00] VITALS: BP 119/62; PULSE 67; TEMP 98.6
== END 2023-09-07 18:30 | disposition home or self-care (01) | DRG 641 ==
LOC: JER 23:00 → JERBED 09-05 01:28 → J4W 09-05 03:33
PROVIDERS: ADMIT Internal Medicine; ATTEND Family Medicine
DX: E87.1 Hypo-osmolality and hyponatremia (principal); I10 Essential (primary) hypertension; J44.9 Chronic obstructive pulmonary disease, unspecified; E88.09 Other disorders of plasma-protein metabolism, not elsewhere classified; R73.9 Hyperglycemia, unspecified
CPT/HCPCS: 0241U-QW; 36415; 71045-TC-FY; 71250-TC; 80048; 80053; 81003; 82272; 82570; 82607; 82728; 83540; 83550; 83735; 83930; 83935; 84300; 84443; 84484; 85025; 85610; 85730; 87086; 93005; 93010; 93306-TC; 99285-25; J1644; J1756

== ENCOUNTER 2023-11-09 15:01 | Observation (INO) | payer OTHER, BC ==
[2023-11-09 17:36] LABS: BASO % 0.9 % (0-2.0); EOS % 0.5 % (0-4.5); HEMATOCRIT 33.2 % (32.4-45.2); HEMOGLOBIN 11.2 GM/dL (10.7-15.3); MCH 26.8 pg (25.7-33.7); MCHC 33.7 g/dl (32.0-36.0); MEAN CELL VOLUME 79.6 fl (80-96); MEAN PLT VOLUME 7.9 fl (7.5-11.1); MONO % 8.6 % (3.8-10.2); PLATELET COUNT 374 10^3/uL (134-434); RBC 4.17 M/mm3 (3.60-5.2); RDW 15.9 % (11.6-15.6); WHITE BLOOD COUNT 9.5 K/mm3 (4.0-10.0)
[2023-11-09 17:51] LABS: ACTIVATED PTT 33.6 SECONDS (25.2-36.5); INR 1.07 (0.83-1.09); POTASSIUM 4.7 mmol/L (3.5-5.1); PROTHROMBIN TIME (PATIENT) 12.1 SEC (9.7-13.0)
[2023-11-09 17:53] LABS: CALCIUM 8.9 mg/dL (8.5-10.1)
[2023-11-09 17:54] LABS: ALBUMIN 3.5 g/dl (3.4-5.0); BLOOD UREA NITROGEN 10.3 mg/dL (7-18); MAGNESIUM 1.8 mg/dL (1.8-2.4)
[2023-11-09 17:57] LABS: CREATININE 0.8 mg/dL (0.55-1.3)
[2023-11-09 17:58] LABS: BILIRUBIN,TOTAL 0.5 mg/dL (0.2-1)
[2023-11-09 17:59] LABS: TOT PROT 8.2 g/dl (6.4-8.2)
[2023-11-09 18:53] LABS: PHOSPHOROUS 2.8 mg/dL (2.5-4.9)
[2023-11-09] MEDS: ACETAMINOPHEN 325 MG TABLET (FP) PO PRN (22:00)
[2023-11-09] MEDS ORDERED: ACETAMINOPHEN 325 MG TABLET (FP) ONE (22:25)
[2023-11-10] MEDS ORDERED: ALBUTEROL SO4 0.083% IH SOL 2.5 MG/3 ML VIAL.NEB. NEB PRN (07:43)
[2023-11-10] MEDS ORDERED: ACETAMINOPHEN 325 MG TABLET (FP) PO PRN (07:43)
[2023-11-10] MEDS: PANTOPRAZOLE 40 MG TABLET PO SCH (10:07)
[2023-11-10] MEDS: LOSARTAN POTASSIUM 50 MG TABLET PO SCH (10:07)
[2023-11-10 11:01] LABS: BASO % 1.3 % (0-2.0); EOS % 0.9 % (0-4.5); HEMATOCRIT 31.2 % (32.4-45.2); HEMOGLOBIN 10.7 GM/dL (10.7-15.3); LYMPH % 39.1 % (8-40); MCH 27.2 pg (25.7-33.7); MCHC 34.3 g/dl (32.0-36.0); MEAN CELL VOLUME 79.3 fl (80-96); MONO % 9.1 % (3.8-10.2); NEUT % 49.6 % (42.8-82.8); PLATELET COUNT 350 10^3/uL (134-434); RBC 3.93 M/mm3 (3.60-5.2); RDW 15.7 % (11.6-15.6); WHITE BLOOD COUNT 7.9 K/mm3 (4.0-10.0)
[2023-11-10 11:19] LABS: POTASSIUM 3.7 mmol/L (3.5-5.1)
[2023-11-10 11:56] LABS: BLOOD UREA NITROGEN 9.2 mg/dL (7-18); CALCIUM 9.1 mg/dL (8.5-10.1); CREATININE 0.9 mg/dL (0.55-1.3)
[2023-11-10] MEDS: ROSUVASTATIN CA 10 MG TABLET PO SCH (21:10)
[2023-11-11 09:38] VITALS: BP 131/71; PULSE 74; RESP 16; TEMP 98.2
[2023-11-11 14:00] VITALS: BMI 25.1
== END 2023-11-11 14:00 | disposition home health service (06) ==
LOC: JER 15:01 → JERBED 18:26 → J4S 11-10 01:45
PROVIDERS: ADMIT Internal Medicine; ATTEND Family Medicine
DX: R00.2 Palpitations (principal); K21.9 Gastro-esophageal reflux disease without esophagitis; I10 Essential (primary) hypertension; J44.9 Chronic obstructive pulmonary disease, unspecified; Z90.79 Acquired absence of other genital organ(s); Z87.891 Personal history of nicotine dependence
CPT/HCPCS: 36415; 71045-TC-FY; 80048; 80053; 83735; 84100; 84443; 84484; 85025; 85610; 85730; 93005; 93010; 99285-25; G0378

== ENCOUNTER 2023-11-29 03:18 | Emergency (ER) | payer OTHER, BC ==
[2023-11-29 03:41] VITALS: BMI 25.2
[2023-11-29 05:30] LABS: INR 1.07 (0.83-1.09); PROTHROMBIN TIME (PATIENT) 12.1 SEC (9.7-13.0)
[2023-11-29 05:32] LABS: BASO % 0.9 % (0-2.0); EOS % 0.8 % (0-4.5); HEMATOCRIT 31.7 % (32.4-45.2); HEMOGLOBIN 10.5 GM/dL (10.7-15.3); LYMPH % 39.4 % (8-40); MCH 26.7 pg (25.7-33.7); MCHC 33.1 g/dl (32.0-36.0); MEAN CELL VOLUME 80.5 fl (80-96); NEUT % 51.9 % (42.8-82.8); PLATELET COUNT 305 10^3/uL (134-434); RBC 3.94 M/mm3 (3.60-5.2); RDW 16.7 % (11.6-15.6); WHITE BLOOD COUNT 7.9 K/mm3 (4.0-10.0)
[2023-11-29 05:33] LABS: ACTIVATED PTT 31.4 SECONDS (25.2-36.5)
[2023-11-29 05:40] LABS: POTASSIUM 5.9 mmol/L (3.5-5.1)
[2023-11-29 05:42] LABS: CALCIUM 8.6 mg/dL (8.5-10.1)
[2023-11-29 05:43] LABS: ALBUMIN 3.1 g/dl (3.4-5.0); BLOOD UREA NITROGEN 7.3 mg/dL (7-18)
[2023-11-29 05:44] LABS: MAGNESIUM 1.9 mg/dL (1.8-2.4)
[2023-11-29 05:46] LABS: CREATININE 0.8 mg/dL (0.55-1.3)
[2023-11-29 05:47] LABS: BILIRUBIN,TOTAL 0.7 mg/dL (0.2-1); CHOLESTEROL 133 mg/dL (50-200); TOT PROT 7.3 g/dl (6.4-8.2)
[2023-11-29 05:49] LABS: LDL CHOLESTEROL (ONLY SJRH) 70 mg/dL (5-100)
[2023-11-29 05:50] LABS: HDL CHOLESTEROL 50 mg/dL (40-60)
[2023-11-29 09:24] LABS: POTASSIUM 8.7 mmol/L (3.5-5.1)
[2023-11-29 10:25] VITALS: TEMP 98.3
[2023-11-29 11:40] VITALS: BP 154/69; PULSE 74; RESP 18
== END 2023-11-29 11:40 | disposition home or self-care (01) ==
LOC: JER 03:18
DX: I10 Essential (primary) hypertension (principal); R51.9 Headache, unspecified; Z87.891 Personal history of nicotine dependence
CPT/HCPCS: 36415; 70450-TC; 71275-TC; 80053; 80061; 83036; 83735; 84132; 84439; 84443; 84484; 85025; 85379; 85610; 85730; 93005; 93010; 99285-25; Q9967

== ENCOUNTER 2024-02-15 04:36 | Day surgery (SDC) | payer OTHER, BC ==
[2024-02-10 11:33] VITALS: BMI 25.7
[2024-02-15 11:48] VITALS: TEMP 97.7
[2024-02-15 12:06] VITALS: BP 121/66; PULSE 70; RESP 17
== END 2024-02-15 12:10 | disposition home or self-care (01) ==
LOC: JASU-ENDO 04:36
PROVIDERS: ATTEND Internal Medicine Gastroenterology
PROC: 0DBN8ZX Excision of Sigmoid Colon, Via Natural or Artificial Opening Endoscopic, Diagnostic (ICD-10-PCS; 2024-02-15)
PROC: 0DB98ZX Excision of Duodenum, Via Natural or Artificial Opening Endoscopic, Diagnostic (ICD-10-PCS; 2024-02-15)
PROC: 0DB78ZX Excision of Stomach, Pylorus, Via Natural or Artificial Opening Endoscopic, Diagnostic (ICD-10-PCS; 2024-02-15)
PROC: 0DB68ZX Excision of Stomach, Via Natural or Artificial Opening Endoscopic, Diagnostic (ICD-10-PCS; 2024-02-15)
PROC: 0DBH8ZX Excision of Cecum, Via Natural or Artificial Opening Endoscopic, Diagnostic (ICD-10-PCS; principal; 2024-02-15 11:00)
DX: Z12.11 Encounter for screening for malignant neoplasm of colon (principal); D12.5 Benign neoplasm of sigmoid colon; K63.5 Polyp of colon; K57.30 Diverticulosis of large intestine without perforation or abscess without bleeding; K64.8 Other hemorrhoids; K44.9 Diaphragmatic hernia without obstruction or gangrene; K29.40 Chronic atrophic gastritis without bleeding; K92.1 Melena; D50.0 Iron deficiency anemia secondary to blood loss (chronic); R63.4 Abnormal weight loss
CPT/HCPCS: 88305-TC; 88342-TC

== ENCOUNTER 2024-07-25 18:23 | Inpatient (IN) | payer OTHER, BC ==
[2024-07-25 18:51] VITALS: BMI 26.0
[2024-07-25] MEDS ORDERED: ACETAMINOPHEN INJECTION 100 ML ONE (20:48)
[2024-07-25] MEDS: ACETAMINOPHEN 1000 MG/100 ML BAG IVPB ONE (21:00)
[2024-07-25 21:06] LABS: ABSOLUTE IMMATURE GRANULOCYTES 0.05 x10^3/uL (0.0-0.031); BASOPHILS # 0.08 x10^3/uL (0.01-0.08); EOSINOPHIL % 0.4 % (0.7-5.8); EOSINOPHILS # 0.07 x10^3/uL (0.04-0.36); HEMATOCRIT 33.3 % (34.1-44.9); HEMOGLOBIN 11.4 g/dL (11.2-15.7); MCHC 34.2 g/dl (32.2-35.5); MEAN PLT VOLUME 9.8 fl (9.4-12.3); MONOCYTE # 1.37 x10^3/uL (0.24-0.86); PLATELET COUNT # 308 x10^3/uL (182-369); RDW 16.2 % (12.5-17.0)
[2024-07-25 21:11] LABS: EPI CELLS 15 /uL (0-25.1); HYALINE CASTS 1 /uL (0-3.1); URINE APPEARANCE CLEAR; URINE BACTERIA 20 /uL (0-1359); URINE BILIRUBIN NEGATIVE (NEGATIVE); URINE COLOR YELLOW; URINE GLUCOSE (UA) NEGATIVE (NEGATIVE); URINE KETONE TRACE (NEGATIVE); URINE LEUK ESTERASE 2+ (NEGATIVE); URINE NITRITE NEGATIVE (NEGATIVE); URINE PROTEIN TRACE (NEGATIVE); URINE RBC 78 /uL (0-23.9); URINE WBC 183 /uL (0-25.8)
[2024-07-25 21:32] LABS: POTASSIUM 4.8 mmol/L (3.5-5.1)
[2024-07-25 21:34] LABS: CALCIUM 8.7 mg/dL (8.5-10.1)
[2024-07-25 21:35] LABS: ALBUMIN 3.3 g/dl (3.4-5.0); BLOOD UREA NITROGEN 14.4 mg/dL (7-18)
[2024-07-25 21:38] LABS: CREATININE 0.9 mg/dL (0.55-1.3)
[2024-07-25 21:39] LABS: BILIRUBIN,TOTAL 0.8 mg/dL (0.2-1); TOT PROT 7.4 g/dl (6.4-8.2)
[2024-07-25] MEDS ORDERED: CEFTRIAXONE 1 G/50 ML PREMIX 50 ML IVPB ONE (23:01)
[2024-07-25] MEDS: SODIUM CHLORIDE 0.9% 500 ML INFUS.BAG IV ONE (23:10)
[2024-07-26 01:07] VITALS: RESP 18
[2024-07-26] MEDS ORDERED: MORPHINE SULFATE 2 MG/ML SYRINGE IVPUSH PRN (01:23)
[2024-07-26] MEDS ORDERED: ACETAMINOPHEN 1000 MG/100 ML BAG IVPB PRN (03:00)
[2024-07-26] MEDS: DEXTROSE 5%-NORMAL SALINE 1,000 ML IV SCH (03:10)
[2024-07-26] MEDS ORDERED: CEFEPIME HCL 2 GM VIAL (RESTRICTED TO ID) IVPB SCH (05:00)
[2024-07-26] MEDS: CEFEPIME HCL/D5W 2 GM/50 ML BAG IVPB SCH (05:42)
[2024-07-26 09:15] LABS: ABSOLUTE IMMATURE GRANULOCYTES 0.07 x10^3/uL (0.0-0.031); BASOPHILS # 0.05 x10^3/uL (0.01-0.08); EOSINOPHIL % 0.3 % (0.7-5.8); EOSINOPHILS # 0.04 x10^3/uL (0.04-0.36); HEMATOCRIT 30.6 % (34.1-44.9); HEMOGLOBIN 10.4 g/dL (11.2-15.7); MEAN CELL VOLUME 76.9 fl (79.4-94.8); MONOCYTE # 0.93 x10^3/uL (0.24-0.86); MONOCYTE % 6.7 % (4.7-12.5); PLATELET COUNT # 262 x10^3/uL (182-369)
[2024-07-26 09:33] LABS: POTASSIUM 3.5 mmol/L (3.5-5.1)
[2024-07-26 09:35] LABS: ALBUMIN 2.8 g/dl (3.4-5.0); CALCIUM 8.3 mg/dL (8.5-10.1)
[2024-07-26 09:39] LABS: CREATININE 0.7 mg/dL (0.55-1.3)
[2024-07-26 09:40] LABS: BILIRUBIN,TOTAL 0.6 mg/dL (0.2-1); TOT PROT 6.2 g/dl (6.4-8.2)
[2024-07-26] MEDS: ALBUTEROL SO4 2.5/IPRATROPIUM 0.5 INH SOL 3 ML VIAL.NEB. NEB SCH (11:27)
[2024-07-27] MEDS: CEFTRIAXONE 2 GM-D5W BAG 2 GM/50 ML BAG IVPB SCH (09:15)
[2024-07-27 09:31] LABS: POTASSIUM 3.3 mmol/L (3.5-5.1)
[2024-07-27 09:34] LABS: BLOOD UREA NITROGEN 8.7 mg/dL (7-18); CALCIUM 8.8 mg/dL (8.5-10.1); MAGNESIUM 1.9 mg/dL (1.8-2.4)
[2024-07-27 09:38] LABS: CREATININE 0.8 mg/dL (0.55-1.3); PHOSPHOROUS 2.9 mg/dL (2.5-4.9)
[2024-07-27 09:57] LABS: ABSOLUTE IMMATURE GRANULOCYTES 0.06 x10^3/uL (0.0-0.031); BASOPHILS # 0.05 x10^3/uL (0.01-0.08); EOSINOPHIL % 0.9 % (0.7-5.8); EOSINOPHILS # 0.11 x10^3/uL (0.04-0.36); HEMATOCRIT 29.1 % (34.1-44.9); HEMOGLOBIN 9.9 g/dL (11.2-15.7); MEAN CELL VOLUME 75.8 fl (79.4-94.8); MEAN PLT VOLUME 10.6 fl (9.4-12.3); MONOCYTE # 1.02 x10^3/uL (0.24-0.86); MONOCYTE % 7.9 % (4.7-12.5); PLATELET COUNT # 253 x10^3/uL (182-369)
[2024-07-27] MEDS: POTASSIUM CHLORIDE ORAL LIQUID 20 MEQ/15 ML PO ONE (12:16)
[2024-07-27] MEDS: hydrALAZINE HCL 20 MG/ML VIAL IM PRN (12:50)
[2024-07-27] MEDS: D5-1/2NS+30 MEQ KCL - 30 MEQ/1,000 ML INFUS.BAG IV SCH ×2 (14:17→19:08)
[2024-07-27] MEDS: SODIUM CHLORIDE 500 ML IV STA (17:34)
[2024-07-27] MEDS: ONDANSETRON 4 MG/2 ML VIAL IVPUSH PRN (19:41)
[2024-07-28 09:50] LABS: ABSOLUTE IMMATURE GRANULOCYTES 0.03 x10^3/uL (0.0-0.031); BASOPHILS # 0.05 x10^3/uL (0.01-0.08); EOSINOPHIL % 1.8 % (0.7-5.8); EOSINOPHILS # 0.16 x10^3/uL (0.04-0.36); HEMATOCRIT 27.4 % (34.1-44.9); HEMOGLOBIN 9.3 g/dL (11.2-15.7); MCHC 33.9 g/dl (32.2-35.5); MEAN CELL VOLUME 75.5 fl (79.4-94.8); MEAN PLT VOLUME 9.8 fl (9.4-12.3); MONOCYTE # 0.86 x10^3/uL (0.24-0.86); MONOCYTE % 9.4 % (4.7-12.5); PLATELET COUNT # 249 x10^3/uL (182-369); RDW 15.5 % (12.5-17.0)
[2024-07-28 10:02] LABS: POTASSIUM 3.3 mmol/L (3.5-5.1)
[2024-07-28 10:22] LABS: CALCIUM 8.4 mg/dL (8.5-10.1)
[2024-07-28 10:23] LABS: ALBUMIN 2.6 g/dl (3.4-5.0); BLOOD UREA NITROGEN 5.6 mg/dL (7-18)
[2024-07-28 10:26] LABS: CREATININE 0.7 mg/dL (0.55-1.3)
[2024-07-28 10:28] LABS: BILIRUBIN,TOTAL 0.5 mg/dL (0.2-1)
[2024-07-28] MEDS: POTASSIUM CHLORIDE ORAL LIQUID 20 MEQ/15 ML PO SCH (10:40)
[2024-07-28 18:13] VITALS: BP 159/68; PULSE 79; TEMP 98.2
== END 2024-07-28 18:35 | disposition home or self-care (01) | DRG 392 ==
LOC: JER 18:23 → JERBED 07-26 00:20 → J5S 07-26 03:20
PROVIDERS: ADMIT Internal Medicine; ATTEND Family Medicine
DX: K57.20 Diverticulitis of large intestine with perforation and abscess without bleeding (principal); K52.9 Noninfective gastroenteritis and colitis, unspecified; J44.9 Chronic obstructive pulmonary disease, unspecified; I10 Essential (primary) hypertension; E78.5 Hyperlipidemia, unspecified
CPT/HCPCS: 36415; 71045-TC-FY; 74177-TC; 80048; 80053; 80076; 81003; 82247; 82248; 82550; 82553; 82728; 82746; 82784; 83010; 83021; 83516; 83540; 83550; 83615; 83690; 83735; 83930; 84100; 85025; 85027; 85045; 85651; 85660; 85730; 86038; 86140; 86705; 86706; 86803; 86850; 86880; 86900; 86901; 87040; 87086; 87340; 87517; 88230; 88262; 93005; 93010; 94640; 99285-25; J0131; Q9967

== ENCOUNTER 2024-09-26 13:20 | Day surgery (SDC) | payer OTHER, BC ==
[2024-09-26] MEDS: IRON SUCROSE INJECTION 200 MG in SODIUM CHLORIDE 100 ML IVPB ONE (13:30)
[2024-09-26 14:47] VITALS: RESP 20; TEMP 98.1
[2024-09-26 14:50] VITALS: BP 108/51; PULSE 67
== END 2024-09-26 14:40 | disposition home or self-care (01) ==
LOC: JONCCHEMO 13:20 → J7W 13:20 → JONCCHEMO 14:40
PROVIDERS: ATTEND Internal Medicine Hematology & Oncology
PROC: 3E033GC Introduction of Other Therapeutic Substance into Peripheral Vein, Percutaneous Approach (ICD-10-PCS; principal; 2024-09-26)
DX: D50.9 Iron deficiency anemia, unspecified (principal)
CPT/HCPCS: 96365; J1756